=== PATIENT | male | born 1935 | race Caucasian/White ===

== ENCOUNTER → 2016-04-24 | Outpatient (CLI) | payer OTHER, MEDICARE ==
[~2016-04-24] MED LIST: AMLO5TAB2 PO; ASPEC325 PO; EFFSR75 PO; HYDR5TAB27 PO; LISI-725 PO; METO25TA3 PO; MTR600X PO; SIMV20TA2 PO
--- NOTE | 2016-04-24 14:15 | DIAGNOSTIC IMAGING REPORT ---
CT SCAN OF THE CHEST WITHOUT IV CONTRAST CLINICAL HISTORY: Pulmonary nodules. COMPARISON STUDY: Chest CT scans dated 04/30/2015 and 11/14/2014. TECHNIQUE: CT scan of the thorax was performed from the thoracic inlet to the upper abdomen. Images are reviewed in the axial, sagittal, and coronal planes. IV contrast was not administered for this examination as per the front clinician. CT DOSE: 628.67 mGycm FINDINGS: Thyroid: Imaged portions of the thyroid gland are normal in size and attenuation. Thoracic aorta: There is mild atherosclerotic calcification of the thoracic aorta, which is normal in caliber and demonstrates standard 3-vessel arch anatomy. Heart: The heart is normal in size and without pericardial effusion. There are scattered coronary artery calcifications. Lungs and pleural spaces: There is no airspace consolidation or pleural effusion. The trachea and central airways are clear. There are numerous (approximately 10) bilateral pulmonary nodules. The largest nodules are seen in the right lower lobe on image #176 measuring 8 mm and on image #172 measuring 4 mm. The largest nodule in the left lungs and the lower lobe measuring 3 mm as seen on image #159. Mediastinum: There is no mediastinal lymphadenopathy. Millie: Not well assessed without IV contrast. Axillae: There is no axillary lymphadenopathy. Upper abdomen: There is a small hiatal hernia. Partially visualized upper abdominal viscera is otherwise within normal limits. Skeletal structures: The Skeletal structures are osteopenic. No lytic or blastic bony lesions are seen. IMPRESSION: 1. There are numerous (at least 10) indeterminant pulmonary nodules measuring up to 8 mm. These are not significantly changed in size or distribution as compared to 11/14/2014. One additional follow-up examination is recommended in 6 months time to document 2 years of stability. 2. No new pulmonary nodules are clearly seen. 3. There is no airspace consolidation or pleural effusion. Electronically signed by: Michael Wheatley M.D. 04/24/2016 2:14 PM Dictated Date/Time: 04/24/2016 2:08 PM
== END | disposition home or self-care (01) ==
LOC: C.CTS 13:49
PROVIDERS: ATTEND Internal Medicine Pulmonary Disease
DX: R91.8 Other nonspecific abnormal finding of lung field (principal)

== ENCOUNTER → 2017-03-01 | Outpatient (CLI) | payer OTHER, MEDICARE ==
--- NOTE | 2017-03-01 12:35 | DIAGNOSTIC IMAGING REPORT ---
(CHEST) THORAX WITHOUT CT DOSE: 579.45 mGy.cm HISTORY: R91.8 Pulmonary nodules TECHNIQUE: Multiaxial CT images of the chest were performed without contrast. A dose lowering technique was utilized adhering to the principles of ALARA. COMPARISON: Chest CT 04/24/2016 and abdomen and pelvis CT 10/23/2014. FINDINGS: Mild motion artifact. No pleural effusions. No pneumothorax. Mild emphysema. There again noted 3 subcentimeter pulmonary nodules within the right lower lobe with the largest measuring 8 x 6 mm, unchanged. The 2 additional subcentimeter nodules may have increased in size by approximately 1 mm. A 4 mm nodule within the left lower lobe on image 132. A few tiny nodular densities within the superior segment of the right lower lobe. These measure up to 3 mm area one of these is likely new compared to the prior studies. Stable 5 mm nodule within the superior segment of the left upper lobe on image 87. There are 2 small nodules within the right lung apex measuring 6 and 4 mm. These appear to have increased in size by approximately 1 mm. No suspicious lytic or blastic osseous lesions. No mediastinal or hilar lymphadenopathy. IMPRESSION: Multiple bilateral pulmonary nodules are again noted. The dominant 8 mm nodule within the right lower lobe is not significantly changed. However, a few of the additional subcentimeter nodules may have slightly increased in size dating back to the 2014/2015 examinations. Therefore, an additional [address] follow up is recommended. Electronically signed by: Michael Lofton M.D. 03/01/2017 12:34 PM Dictated Date/Time: 03/01/2017 12:23 PM
== END | disposition home or self-care (01) ==
LOC: C.CTS 12:04
PROVIDERS: ATTEND Physician Assistant
DX: R91.8 Other nonspecific abnormal finding of lung field (principal)